=== PATIENT | female | born 1965 | race Caucasian/White ===

== ENCOUNTER 2017-03-05 09:38 | Emergency (ER) | payer MEDICARE, OTHER ==
[~2017-03-05] VITALS: Ht 165.1 cm; Wt 94.8 kg
[~2017-03-05 09:38] MED LIST: AMITRIPTYLINE H10 MG PO; ASPIRIN EC81 MG PO; AUGMENTIN 875-1 EACH PO; CARVEDILOL12.5 MG PO; CYMBALTA60 MG PO; IBUPROFEN600 MG PO; LISINOPRIL5 MG PO; LYRICA100 MG PO; MECLIZINE HCL25 MG PO
[2017-03-05] MEDS ORDERED: DOXYCYCLINE MO100 M1 PO (09:52)
== END 2017-03-05 10:24 | disposition home or self-care (01) ==
LOC: ED 09:38
DX: R22.9 Localized swelling, mass and lump, unspecified (principal); Z00.8 Encounter for other general examination

== ENCOUNTER 2017-05-08 11:45 | Emergency (ER) | payer MEDICARE, OTHER ==
[~2017-05-08] VITALS: Ht 165.1 cm; Wt 94.8 kg
[~2017-05-08 11:45] MED LIST changes: +DOXYCYCLINE MO100 M1 PO
== END 2017-05-08 14:12 | disposition home or self-care (01) ==
LOC: ED 11:45
DX: S16.1XXA Strain of muscle, fascia and tendon at neck level, initial encounter (principal); I11.0 Hypertensive heart disease with heart failure; I50.9 Heart failure, unspecified; W00.0XXA Fall on same level due to ice and snow, initial encounter; Z86.73 Personal history of transient ischemic attack (TIA), and cerebral infarction without residual deficits; Z88.2 Allergy status to sulfonamides; Z79.899 Other long term (current) drug therapy; Z79.82 Long term (current) use of aspirin
CPT/HCPCS: 70450; 72125; 72128; 72131; 73080; 99284

== ENCOUNTER 2017-06-09 02:37 | Emergency (ER) | payer MEDICARE, OTHER ==
[~2017-06-09] VITALS: Ht 165.1 cm; Wt 94.8 kg
== END 2017-06-09 04:26 | disposition home or self-care (01) ==
LOC: ED 02:37
PROC: 0HQ0XZZ Repair Scalp Skin, External Approach (ICD-10-PCS; principal; 2017-06-09)
DX: S01.01XA Laceration without foreign body of scalp, initial encounter (principal); S16.1XXA Strain of muscle, fascia and tendon at neck level, initial encounter; I11.0 Hypertensive heart disease with heart failure; I50.9 Heart failure, unspecified; Z88.2 Allergy status to sulfonamides; Z79.82 Long term (current) use of aspirin; Z79.899 Other long term (current) drug therapy; W01.198A Fall on same level from slipping, tripping and stumbling with subsequent striking against other object, initial encounter; Y92.000 Kitchen of unspecified non-institutional (private) residence as the place of occurrence of the external cause
CPT/HCPCS: 12001; 70450; 72125; 99284

== ENCOUNTER 2018-09-24 07:05 | Day surgery (SDC) | payer MEDICARE, MEDICAID ==
[~2018-09-24] VITALS: Ht 165.1 cm; Wt 97.5 kg
--- NOTE | 2018-09-24 09:02 | NUR ---
09/24/18 0902 Vikki Barnes 0851- PT ARRIVES TO PACU NONAROUSABLE TO NOXIOUS STIMULI. RESP EVEN AND UNLABORED. OXYGEN SAT HIGH 90'S TO 100% ON 4L VIA NC. PT'S BP IN THE 90'S SYSTOLICALLY. ALKA KING CRNA AWARE. NO NEW ORDERS AT THIS TIME.
--- NOTE | 2018-09-24 16:17 | OR ---
[facility] [address], [place] [address] Signed DATE OF OPERATION: 09/24/2018 SURGEON: Nithya Worthington MD PREOPERATIVE DIAGNOSES: 1. Hemorrhoids. 2. Screening. POSTOPERATIVE DIAGNOSES: 1. A 5 mm external anal skin tag x1. 2. Minimal pruritus ani. PROCEDURE: Colonoscopy without biopsy. ESTIMATED BLOOD LOSS: None. INDICATIONS: Patricia is a 53-year-old female, who came to me with some concerns over hemorrhoids. She felt they were so large, she is having trouble sitting down. Her primary care provider asked to come see me. She gives no family history of colon cancer or polyps. 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 In the office, I gave her and her a pamphlet on colonoscopy and we reviewed that together along with the risks and benefits. They understand the risks including, but not limited to gas bloating, crampy abdominal pain, bleeding, perforation, requiring surgery, and missed diagnosis. They also understands the need for IV conscious sedation. Given her significant medical issues in her functional status, we asked that an anesthesia provider help us with increased monitoring and sedation with propofol. They had expressed understanding and wished to proceed. PROCEDURE NOTE: Patricia was taken into our endoscopy suite and placed in the left lateral decubitus position. She was given a preoperative antibiotic. She was given IV sedation with propofol per our nurse picker operator. A digital rectal exam was performed and she has a moderately deep gluteal cleft. There is some very mild pale discoloration to her anal skin. She had a 5 mm single external anal skin tag in the anterior midline. She had good sphincter tone. No palpable masses. After this the adult colonoscope was introduced and advanced all the way around into the cecum under direct visualization of Electronically Signed By: NITHYA WORTHINGTON MD 09/24/18 1617 PATIENT NAME: PATRICIA PIKE OPERATIVE REPORT DATE OF : 65 REPORT #: [id number] PHYSICIAN: NITHYA WORTHINGTON MD PCP: JOHNNIE PANDEY DO REPORT IS CONFIDENTIAL AND NOT TO BE RELEASED WITHOUT AUTHORIZATION [facility] [address], [place] [address] Signed camera without difficulty. Her prep was good. The scope was slowly withdrawn. We could easily see the appendiceal orifice and ileocecal valve. We took pictures throughout for photodocumentation. She had no pathology whatsoever throughout the entire colon or rectum. Upon retroflexion of the scope, she has no visible evidence of any internal hemorrhoids. After this, the gas was suctioned out, colonoscope removed. Patricia tolerated procedure quite well. RECOMMENDATIONS: Patricia is welcome to see me in the office once again, if she would like. We could certainly do a formal endoscopy for her. However, I think she will do fine with some Balneol lotion and Benefiber for the pruritus ani. I have already been over that with her in the office. If she wants the external anal skin tag removed, I am happy to do that as well. Otherwise, she can return in 10 years for repeat colonoscopy. Nithya Worthington MD ALB/MODL /[id number] cc: DO Nithya Fagan MD Mershed Alsamara, MD Copies: JOHNNIE PANDEY ANDREW L MD ALSAMARA, MERSHED MD ~ Electronically Signed By: NITHYA WORTHINGTON MD 09/24/18 1617 PATIENT NAME: PATRICIA PIKE OPERATIVE REPORT DATE OF : 65 REPORT #: [id number] PHYSICIAN: NITHYA WORTHINGTON MD PCP: JOHNNIE PANDEY DO REPORT IS CONFIDENTIAL AND NOT TO BE RELEASED WITHOUT AUTHORIZATION
== END 2018-09-24 09:51 | disposition home or self-care (01) ==
LOC: DS 07:05 → OPS 07:05
PROVIDERS: Colon & Rectal Surgery
PROC: 0DJD8ZZ Inspection of Lower Intestinal Tract, Via Natural or Artificial Opening Endoscopic (ICD-10-PCS; principal; 2018-09-24 08:00)
DX: Z12.11 Encounter for screening for malignant neoplasm of colon (principal); K64.4 Residual hemorrhoidal skin tags; K62.89 Other specified diseases of anus and rectum; I11.0 Hypertensive heart disease with heart failure; F41.9 Anxiety disorder, unspecified; I69.351 Hemiplegia and hemiparesis following cerebral infarction affecting right dominant side; I50.9 Heart failure, unspecified; Z88.2 Allergy status to sulfonamides; Z79.82 Long term (current) use of aspirin; Z79.899 Other long term (current) drug therapy; Z95.0 Presence of cardiac pacemaker
CPT/HCPCS: J2250; J2704; J7120

== ENCOUNTER 2021-06-13 14:26 | Observation (INO) | payer MEDICARE, OTHER ==
[~2021-06-13] VITALS: Ht 165.1 cm; Wt 92.6 kg
--- NOTE | 2021-06-13 18:53 | EKG ---
[facility] [address] [place] [address] Signed Sinus rhythm with complete heart block and Wide QRS rhythm Left bundle branch block Abnormal ECG When compared with ECG of 23-SEP-2018 11:41, Wide QRS rhythm has replaced Electronic ventricular pacemaker Vent. rate has decreased BY 24 BPM Confirmed by ALLYSON MICHELLE MD ([id number]) on 06/13/2021 6:52:51 PM Electronically Signed By: ALLYSON MICHELLE MD 06/13/21 1853 PATIENT NAME: LESLIE PIKE Electrocardiogram DATE OF : 65 PHYSICIAN: ALLYSON MICHELLE MD REPORT #: [id number] REPORT IS CONFIDENTIAL AND NOT TO BE RELEASED WITHOUT AUTHORIZATION
== END 2021-06-14 06:31 | disposition home or self-care (01) ==
LOC: ED 14:26 → CCU 17:47
PROVIDERS: ADMIT Internal Medicine; ATTEND Internal Medicine
DX: I44.2 Atrioventricular block, complete (principal); I42.9 Cardiomyopathy, unspecified; G89.4 Chronic pain syndrome; I11.0 Hypertensive heart disease with heart failure; I50.22 Chronic systolic (congestive) heart failure; Z86.73 Personal history of transient ischemic attack (TIA), and cerebral infarction without residual deficits; Z88.2 Allergy status to sulfonamides; Z95.1 Presence of aortocoronary bypass graft; Z95.0 Presence of cardiac pacemaker; Z20.822 Contact with and (suspected) exposure to COVID-19
CPT/HCPCS: 36415; 71045; 80053; 83735; 84484; 85025; 85610; 85730; 93005; 93010; U0003